=== PATIENT | male | born 1945 | race Caucasian/White ===

== ENCOUNTER 2017-11-11 12:33 | Day surgery (SDC) | payer OTHER ==
[~2017-11-11] VITALS: Ht 185.4 cm; Wt 88.9 kg
[~2017-11-11 12:33] MED LIST: ESCI10; ESOM20; MORP15ER; TESTTP
[2017-11-11] MEDS ORDERED: LYRICA20 MG/1 ML (12:51)
[2017-11-11] MEDS ORDERED: ANDRODERM1 EAC1 (12:51)
[2017-11-11] MEDS ORDERED: DULO30 (12:51)
== END 2017-11-11 14:24 | disposition home or self-care (01) ==
LOC: ORSCSDS 12:33
PROVIDERS: Internal Medicine Gastroenterology
PROC: 0DJD8ZZ Inspection of Lower Intestinal Tract, Via Natural or Artificial Opening Endoscopic (ICD-10-PCS; principal; 2017-11-11 13:45)
DX: Z12.11 Encounter for screening for malignant neoplasm of colon (principal); K64.8 Other hemorrhoids; K57.30 Diverticulosis of large intestine without perforation or abscess without bleeding; K21.9 Gastro-esophageal reflux disease without esophagitis; G47.33 Obstructive sleep apnea (adult) (pediatric); F32.9 Major depressive disorder, single episode, unspecified; Z79.899 Other long term (current) drug therapy

== ENCOUNTER 2018-05-18 18:29 | Emergency (ER) | payer OTHER ==
[~2018-05-18] VITALS: Ht 185.4 cm; Wt 86.2 kg
[~2018-05-18 18:29] MED LIST changes: +ANDRODERM1 EAC1; +DULO30; +LYRICA20 MG/1 ML
== END 2018-05-18 20:54 | disposition home or self-care (01) ==
LOC: ER 18:29
DX: S20.211A Contusion of right front wall of thorax, initial encounter (principal); S40.811A Abrasion of right upper arm, initial encounter; Z79.899 Other long term (current) drug therapy; W11.XXXA Fall on and from ladder, initial encounter
CPT/HCPCS: 71101; 93005; 93010; 99284-25

== ENCOUNTER → 2020-07-24 | Outpatient (CLI) | payer OTHER | END | disposition home or self-care (01) | LOC: PLD 12:27 → LAB SHORT 12:27 | DX: D48.5 Neoplasm of uncertain behavior of skin (principal) | CPT/HCPCS: 88305 ==